=== PATIENT | male | born 1965 | race Caucasian/White ===

== ENCOUNTER 2019-04-01 08:16 | Day surgery (SDC) | payer MEDICAID ==
[~2019-04-01] VITALS: Ht 182.9 cm; Wt 77.3 kg
[~2019-04-01 08:16] MED LIST: ALBU8HFA PO; BUPR348T PO; DIPH-654 PO; ESOM20CA31 PO; LAMO100 PO; QUET25TA PO; SODIUM CHLORIDE 0.9% 1,000 ML IV ONE
[2019-04-01] MEDS ORDERED: PROPOFOL 1% 20 ML VIAL IVP ONE (08:17)
[2019-04-01] MEDS ORDERED: SODIUM CHLORIDE 0.9% 1,000 ML IV ONE (09:13)
== END 2019-04-01 11:55 | disposition home or self-care (01) ==
LOC: SURGERY 08:16
PROVIDERS: ATTEND Internal Medicine Gastroenterology
DX: K29.50 Unspecified chronic gastritis without bleeding (principal); K21.9 Gastro-esophageal reflux disease without esophagitis; F41.9 Anxiety disorder, unspecified; F32.9 Major depressive disorder, single episode, unspecified; Z86.010 Personal history of colon polyps; Z98.890 Other specified postprocedural states
CPT/HCPCS: 43239; 88305; 88312; 88313; C1769; J2704; J7030